=== PATIENT | female | born 2000 | race Caucasian/White ===

== ENCOUNTER 2021-09-14 10:16 | Emergency (ER) | payer BC, SELFPAY ==
[2021-09-14 10:29] VITALS: BP 139/68; PULSE 94; RESP 16; TEMP 36.9; O2SAT 99
--- NOTE | 2021-09-14 11:06 | ED.GENADULT ---
HPI - General Adult General Chief complaint: Urogenital-Female Stated complaint: Tampon unable to get removed Time Seen by Provider: 09/14/21 10:52 Source: patient and RN notes reviewed Mode of arrival: ambulatory Limitations: no limitations History of Present Illness HPI narrative: Patient presents today complaining of a retained tampon. She put one in last night thinking she was going to start her around 1800. She forgot about it then had intercourse. States she is 100% competent that it is still in her vagina. complaint: Retained tampon Related Data Home Medications Medication Instructions Recorded Confirmed etonogestrel [Nexplanon] See Rx Instructions .ROUTE .COMPLEX 09/14/21 09/14/21 Allergies Allergy/AdvReac Type Severity Reaction Status Date / Time No Known Allergies Allergy Verified 09/14/21 10:40 Review of Systems Review of Systems: CONSTITUTIONAL: Denies body aches, fever, chills, or sweats. EYES: Denies visual changes, redness, or discharge. ENT: Denies rhinorrhea, congestion, sore throat, or otalgia. CARDIOVASCULAR: Denies chest pain, palpitations, or edema. RESPIRATORY: Denies cough or dyspnea. GASTROINTESTINAL: Denies abdominal pain, nausea, vomiting, or diarrhea. GENITOURINARY: Denies dysuria or hematuria. + Retained tampon SKIN: Denies rash, itching, or wounds. MUSCULOSKELETAL: Denies back pain, joint pain, or myalgia. NEUROLOGIC: Denies headache, numbness, tingling, or weakness. PSYCH: Denies depression or anxiety. PMFSH Comments At time of signature, I have reviewed and agree with nursing past medical, surgical, social and family history unless otherwise noted. Please see nursing chart for further information. There is no relevant family history pertinent to the presenting complaint Exam Narrative: GENERAL: Well-appearing, well-nourished, and in no acute distress. HEAD: Normocephalic, atraumatic. EYES: EOMI. No redness or drainage. Conjunctivae normal. ENT: Mucous membranes pink and moist. NECK: Normal AROM. CHEST: No respiratory distress. : Retained tampon noted in vagina. Removed with sponge foreceps. EXTREMITIES: Normal range of motion. No edema. SKIN: Warm, dry, no rash. Capillary refill normal. Normal skin turgor. NEURO: No focal deficits. Alert and oriented x3. Gait steady. PSYCH: Normal affect. No signs of depression or anxiety. Course Vital Signs Vital signs: Vital Signs Temperature 98.4 F 09/14/21 10:29 Pulse Rate 94 09/14/21 10:29 Respiratory Rate 16 09/14/21 10:29 Blood Pressure 139/68 09/14/21 10:29 Pulse Oximetry 99 09/14/21 10:29 Temperature 98.4 F 09/14/21 10:29 Pulse Rate 94 09/14/21 10:29 Respiratory Rate 16 09/14/21 10:29 Blood Pressure 139/68 09/14/21 10:29 Pulse Oximetry 99 09/14/21 10:29 Reviewed. Pt has been instructed to follow up with her PCP regarding her elevated blood pressure today. Procedures Foreign Body Removal Foreign Body #1: Foreign Body Removal Date: 09/14/21 Foreign Body Removal Time: 11:07 Time Out Performed: no Site: vagina Description of foreign body: other (tampon) Sedation/Analgesia: none Technique: removal with forceps Confirmed by:: direct visualization Complications: none Post-procedure exam: awake, alert Foreign Body Removal Narrative: Intact tampon removed from vagina. Medical Decision Making Differential Diagnosis Differential Diagnosis: Retained tampon, worried well Vital Signs Vital Signs: Vital Signs Temperature 98.4 F 09/14/21 10:29 Pulse Rate 94 09/14/21 10:29 Respiratory Rate 16 09/14/21 10:29 Blood Pressure 139/68 09/14/21 10:29 Pulse Oximetry 99 09/14/21 10:29 Temperature 98.4 F 09/14/21 10:29 Pulse Rate 94 09/14/21 10:29 Respiratory Rate 16 09/14/21 10:29 Blood Pressure 139/68 09/14/21 10:29 Pulse Oximetry 99 09/14/21 10:29 Critical Care Time Critical
== END 2021-09-14 11:15 | disposition home or self-care (01) ==
PROVIDERS: Emergency Provider Nurse Practitioner
DX: T19.2XXA Foreign body in vulva and vagina, initial encounter (principal); X58.XXXA Exposure to other specified factors, initial encounter
CPT/HCPCS: 99212; G0463

== ENCOUNTER 2021-11-05 09:23 | Emergency (ER) | payer BC, SELFPAY ==
[2021-11-05 09:29] VITALS: BP 131/71; PULSE 82; RESP 16; TEMP 36.3; O2SAT 99
--- NOTE | 2021-11-05 10:04 | ED.NAVMDI ---
HPI - Nausea/Vomiting/Diarrhea General Chief complaint: Nausea/Vomiting/Diarrhea Stated complaint: vomiting/diaherra/nausea Time Seen by Provider: 11/05/21 10:04 Source: patient and RN notes reviewed Mode of arrival: ambulatory Limitations: no limitations History of Present Illness HPI Narrative: Patient presents today complaint of a 3-day history of nausea and vomiting. She initially ran a fever of 100.7, but this has resolved. Over the last 24 h she has been able to eat some cereal. And soup and been able to drink fluids. She does continue to have some diarrhea. 3 episodes yesterday and 2 today so far. No blood or mucus in the stool. She does continue to have nausea. Her last episode of vomiting was yesterday at 6:30 in the morning. She continues to have normal urine output. MD elicited complaint: nausea, vomiting and diarrhea Related Data Home Medications Medication Instructions Recorded Confirmed etonogestrel [Nexplanon] See Rx Instructions .ROUTE .COMPLEX 09/14/21 09/14/21 Allergies Allergy/AdvReac Type Severity Reaction Status Date / Time No Known Allergies Allergy Verified 09/14/21 10:40 Review of Systems Review of Systems: CONSTITUTIONAL: Denies chills, or sweats.+ Fever, body aches EYES: Denies visual changes, redness, or discharge. ENT: Denies rhinorrhea, congestion, sore throat, or otalgia. CARDIOVASCULAR: Denies chest pain, palpitations, or edema. RESPIRATORY: Denies cough or dyspnea. GASTROINTESTINAL: Denies abdominal pain. + Nausea, vomiting, diarrhea GENITOURINARY: Denies dysuria or hematuria. SKIN: Denies rash, itching, or wounds. MUSCULOSKELETAL: Denies back pain, joint pain, or myalgia. NEUROLOGIC: Denies headache, numbness, tingling, or weakness. PSYCH: Denies depression or anxiety. PMFSH Comments At time of signature, I have reviewed and agree with nursing past medical, surgical, social and family history unless otherwise noted. Please see nursing chart for further information. There is no relevant family history pertinent to the presenting complaint Exam Narrative: GENERAL: Well-appearing, well-nourished, and in no acute distress. HEAD: Normocephalic, atraumatic. EYES: EOMI. No redness or drainage. Conjunctivae normal. ENT: Mucous membranes pink and moist. Throat normal. Uvula midline. NECK: Normal AROM. Supple. No lymphadenopathy. CHEST: No respiratory distress. Clear to auscultation. HEART: Regular rate and rhythm. No murmur appreciated. Normal peripheral pulses. ABDOMEN: Soft, nontender, nondistended, normal active bowel sounds. MUSCULOSKELETAL: No bony tenderness. EXTREMITIES: Normal range of motion. No edema. SKIN: Warm, dry, no rash. Capillary refill normal. Normal skin turgor. NEURO: No focal deficits. Alert and oriented x3. Gait steady. PSYCH: Normal affect. No signs of depression or anxiety. Course Vital Signs Vital signs: Vital Signs Temperature 97.3 F L 11/05/21 09:29 Pulse Rate 82 11/05/21 09:29 Respiratory Rate 16 11/05/21 09:29 Blood Pressure 131/71 11/05/21 09:29 Pulse Oximetry 99 11/05/21 09:29 Temperature 97.3 F L 11/05/21 09:29 Pulse Rate 82 11/05/21 09:29 Respiratory Rate 16 11/05/21 09:29 Blood Pressure 131/71 11/05/21 09:29 Pulse Oximetry 99 11/05/21 09:29 Reviewed. Pt has been instructed to follow up with her PCP regarding her elevated blood pressure today. MDM - Nausea/Vomiting/Diarrhea Differential Diagnosis Differential diagnosis: Likely food poisoning, gastroenteritis and dehydration Critical Care Time Critical Care Time Critical Care Time: No Discharge Plan Discharge Clinical Impression: Gastroenteritis Patient Disposition: Home, Self-Care Condition: Stable Instructions: Gastroenteritis (DC) Additional Instructions: Take the Zofran as prescribed for nausea and vomiting. Your symptoms should continue to improve over the next couple of days. Take Tylenol for fever or pain. Continue
== END 2021-11-05 10:21 | disposition home or self-care (01) ==
PROVIDERS: Emergency Provider Nurse Practitioner
DX: K52.9 Noninfective gastroenteritis and colitis, unspecified (principal)
CPT/HCPCS: 99213; G0463

== ENCOUNTER 2022-02-16 16:06 | Emergency (ER) | payer BC, SELFPAY ==
[2022-02-16 16:17] VITALS: BP 110/75; PULSE 93; RESP 18; TEMP 36.6; O2SAT 100
--- NOTE | 2022-02-16 16:18 | ED.SKABFB ---
HPI - Skin/Abscess/Foreign Bdy General Chief complaint: Skin/Abscess/Foreign Body Stated complaint: Infection in hands Time Seen by Provider: 02/16/22 16:18 Source: patient Mode of arrival: ambulatory Limitations: no limitations History of Present Illness HPI narrative: 22-year-old female presents with cat bites and scratches to both hands. Took her friend's cat in yesterday but gave her back after multiple bites. Reports that cat is up-to-date on vaccines. Patient reports that she is up-to-date on her tetanus. States that left index finger began looking red and swollen last night. No active bleeding. Range of motion intact. All systems reviewed and negative symptoms noted above. Related Data Home Medications Medication Instructions Recorded Confirmed etonogestrel [Nexplanon] See Rx Instructions .ROUTE .COMPLEX 09/14/21 02/16/22 Allergies Allergy/AdvReac Type Severity Reaction Status Date / Time No Known Allergies Allergy Verified 02/16/22 16:08 Review of Systems Review of Systems: CONSTITUTIONAL: Denies fever, chills, or sweats. EYES: Denies visual changes, redness, or discharge. ENT: Denies rhinorrhea, congestion, sore throat, or otalgia. CARDIOVASCULAR: Denies chest pain, palpitations, or edema. RESPIRATORY: Denies cough or dyspnea. GASTROINTESTINAL: Denies abdominal pain, nausea, vomiting, or diarrhea. GENITOURINARY: Denies dysuria or hematuria. SKIN: Denies rash or itching. Reports cat bites and scratches to both hands. MUSCULOSKELETAL: Denies back pain, joint pain, or myalgia. NEUROLOGIC: Denies headache, numbness, or weakness. PSYCHIATRIC: Denies anxiety or depression. All other systems reviewed are negative, except as documented in HPI. PMFSH Comments At time of signature, agree with nursing past medical, surgical, social and family history. There is no relevant family history pertinent to the presenting complaint. Exam Narrative: GENERAL: This is a well-nourished, well-developed patient, in no apparent distress. HEAD: normocephalic, atraumatic. EYES: PERRL. Sclera clear/white. Vision is grossly intact. EARS: External ears normal NOSE: External nose normal NECK: Neck supple, non-tender without lymphadenopathy, masses or thyromegaly. CARDIOVASCULAR: Regular rate and rhythm without murmurs, gallops, or rubs. RESPIRATORY: Clear to auscultation. Breath sounds equal bilaterally. No wheezes, rales, or rhonchi. SKIN: warm, Dry, with no suspicious lesions or rash, good texture and turgor. Multiple superficial scratches and puncture wounds to both hands. There is erythema and swelling to right index finger, thenar aspect of left palm. Warm to touch. No fluctuance concerning for abscess. No drainage. NEURO: awake, alert, and oriented to person, place and time. There were no obvious focal neurologic abnormalities. EXTREMITIES: Normal range of motion to all extremities. Course Course Level of Care: Express Care Visit Vital Signs Vital signs: Reviewed MDM - Skin/Abscess/Foreign Bdy MDM Narrative Medical decision making narrative: Patient is aware of diagnosis, understands and agrees to treatment plan. Anticipatory guidance given. Patient agrees to follow-up as directed and is aware of reasons to seek care at the emergency department. Portions of this record may have been created with voice recognition software Discharge Plan Discharge Clinical Impression: Cat bite of left hand including fingers with infection Qualifiers: Encounter type: initial encounter Qualified Code(s): S61.452A - Open bite of left hand, initial encounter Cat bite of multiple sites of right hand and fingers with infection Qualifiers: Encounter type: initial encounter Qualified Code(s): S61.451A - Open bite of right hand, initial encounter Patient Disposition: Home, Self-Care Condition: Stable Instructions: Antibiotic Form, Animal Bite (ED) Prescriptions: New amoxicillin-pot clavulanate 875-125 mg tablet
[2022-02-16] MEDS: cefTRIAXone 1 GM VIAL IM (16:34)
[2022-02-16] MEDS: LIDOCAINE HCL 1% LOCAL INJ 20 ML VIAL 2.5 ML INFILTRATE (16:36)
== END 2022-02-16 16:58 | disposition home or self-care (01) ==
PROVIDERS: Emergency Provider Nurse Practitioner Family; PCP Student in an Organized Health Care Education/Training Program
DX: S61.452A Open bite of left hand, initial encounter (principal); S61.451A Open bite of right hand, initial encounter; S61.259A Open bite of unspecified finger without damage to nail, initial encounter; L08.9 Local infection of the skin and subcutaneous tissue, unspecified; W55.01XA Bitten by cat, initial encounter
CPT/HCPCS: 96372; 99213; G0463; J0696

== ENCOUNTER 2022-02-19 14:52 | Emergency (ER) | payer BC, SELFPAY ==
[2022-02-19 14:59] VITALS: BP 108/75; PULSE 92; RESP 18; TEMP 36.6; O2SAT 100
--- NOTE | 2022-02-19 15:07 | ED.FEMALEGU ---
HPI - Female Genitourinary General Chief complaint: Urogenital-Female Stated complaint: Std Testing Time Seen by Provider: 02/19/22 15:07 Source: patient, RN notes reviewed and old records reviewed Mode of arrival: ambulatory Limitations: no limitations History of Present Illness HPI Narrative: 22-year-old female presents for an STD check and concern for vaginal itching 2 days ago. No symptoms today. Had unprotected sex approximately 1 month ago. Also had unprotected sex last night Denies any abdominal pain or chest pain. No fevers. Denies any vaginal discharge or itching or irritation currently Related Data Home Medications Medication Instructions Recorded Confirmed etonogestrel [Nexplanon] See Rx Instructions .ROUTE .COMPLEX 09/14/21 02/19/22 Allergies Allergy/AdvReac Type Severity Reaction Status Date / Time No Known Allergies Allergy Verified 02/16/22 16:08 Review of Systems Review of Systems: All systems reviewed & are unremarkable except as noted in HPI and below Constitutional: Constitutional: Reports no additional constitutional complaints, Denies chills and Denies fatigue Eyes: Eyes: Reports no additional eye complaints ENT: Reports system reviewed and no additional complaints, except as documented Cardiovascular: Cardiovascular: Reports no additional cardiovascular complaints Respiratory: Respiratory: Reports no additional respiratory complaints Gastrointestinal: Gastrointestinal: Reports no additional gastrointestinal complaints, Denies abdominal pain, Denies diarrhea, Denies nausea and Denies vomiting Genitourinary: Genitourinary: Reports as per HPI, Denies nocturia, Denies genital lesions, Denies dysuria, Denies pelvic pain, Denies flank pain, Denies urinary incontinence, Denies vaginal discharge and Reports vaginal pruritus (2 days ago) Musculoskeletal: Musculoskeletal: Reports no additional musculoskeletal complaints and Denies back pain Integumentary/Breasts: Skin/Breast: Reports system reviewed and no additional complaints, except as docu Neurologic: Reports system reviewed and no additional complaints, except as documented Psychiatric: Psychiatric: Reports no additional psychiatric complaints Allergic/Immunologic: Allergic/Immunologic: Reports no additional allergic/immunologic complaints PMFSH Comments At the time of my signature, I reviewed and agree with the nursing past medical, surgical, social, and family history. There is no relevant family history pertinent to the patient complaint. Exam Const: General: healthy appearing, no acute distress and alert Nutritional Appearance: well nourished Orientation/consciousness: patient oriented x3 Limitations: no limitations HENMT: Head: normal to inspection Ears: external ears normal Eyes: Conjunctivae: conjunctivae normal Pupils: Equal, round and reactive pupils present Neck: Neck: normal visual inspection, no lymphadenopathy and no meningeal signs Chest: Chest palpation & inspection: normal inspection of the chest and abnormal inspection of the chest Resp: Effort & Inspection: normal respiratory effort Auscultation: clear to auscultation bilaterally Cardio: Rate: regular rate Rhythm: regular rhythm GI: GI Palp: Yes Soft to palpation and No Tenderness to palpation present (GI) : General: Yes no CVA tenderness Speculum Exam - Vagina: normal vaginal discharge, No vaginal bleeding, no swelling and nontender Speculum Exam - Cervix: normal appearance of the cervix, Cervical os closed, normal vervical discharge and nontender Other: Chaperoned by Beena RAMIREZ Back/Spine/Pelvis: Back: no CVA tenderness Skin: General skin exam: normal color Rashes: no rashes Wounds: no wounds Neuro: General: patient oriented x3, moves all extremities, no meningeal signs and no focal motor deficits Cranial nerves: Yes Equal, round and reactive pupils present Speech: normal speech Gait exam (Neuro): Normal gait present Extrem: General: normal to in
== END 2022-02-19 15:40 | disposition home or self-care (01) ==
PROVIDERS: Emergency Provider Nurse Practitioner; PCP Student in an Organized Health Care Education/Training Program
DX: N89.8 Other specified noninflammatory disorders of vagina (principal); Z20.2 Contact with and (suspected) exposure to infections with a predominantly sexual mode of transmission; Z32.02 Encounter for pregnancy test, result negative
CPT/HCPCS: 81025; 87070; 87491; 87591; 87661; 99214; G0463

== ENCOUNTER 2024-01-03 17:23 | Outpatient (CLI) | payer BC, SELFPAY | END 2024-01-03 17:24 | disposition home or self-care (01) | LOC: ANHLAB 17:24 | PROVIDERS: PCP Student in an Organized Health Care Education/Training Program; Visit Provider Obstetrics & Gynecology | DX: Z01.818 Encounter for other preprocedural examination (principal); R10.2 Pelvic and perineal pain | CPT/HCPCS: 36415; 86850; 86900; 86901 ==

== ENCOUNTER 2024-01-07 01:26 | Day surgery (SDC) | payer BC, SELFPAY ==
[2024-01-01 15:52] VITALS: BMI 28.8
--- NOTE | 2024-01-01 16:01 | PC.NURSE ---
Report to the Outpatient Waiting Room, entrance under the green pavilion located off [facility] at 1130 on 01/07/24 . Planned Procedure Time: 1330. Time changes happen often and if your time is changed the preop area will call you the afternoon before. - You and your visitor will be asked to self-screen and do not enter if you have any COVID symptoms. - A mask is optional within the hospital at this time. Patients may have clear liquids (water, carbonated beverages, clear teas, apple juice) until 3 hours prior to surgery with a maximum of 20 ounces. - No food from midnight until time of surgery Take the following medications with a SIP of water the morning of surgery: N/A DO NOT STOP ANY OF YOUR OTHER PRESCRIPTION MEDICATIONS PRIOR TO SURGERY ?EXCEPT THE FOLLOWING Medications to discontinue per physician N/A Date to take last dose N/A Please no make-up, nail bulgarian, hairspray, perfume, deodorant, or body powder the day of surgery. No jewelry (including any body piercings) or valuables the day of surgery, leave them at home. Please take a shower or bath the night before, or the morning of, surgery with an antibacterial soap. Wear comfortable, loose fitting clothing. - Jewelry must be removed prior to entering the operating room. Rings and piercings that are not removed may be cut off. - The hospital will not accept responsibility for valuables. - Please leave all valuables, including medications, at home the day of surgery. If you are going home after surgery, a licensed fast food delivery driver must drive you home. - NO public transportation without another adult if you receive anesthesia. - We recommend that an adult stay with you for 24 hours following discharge. - We also recommend that you do not drive, make important decision, drink alcoholic beverages, or take any drugs that were not prescribed by your health care provider for at least 24 hours after your discharge time. Follow any additional instructions given to you from your surgeon. If you or anyone in your household have experienced Covid symptoms in the past week, please notify your surgeon or the nurse liaison at the phone number below for possible testing. Telephone instructions given to patient and asked if any additional questions and then verbalized understanding. Patient advised to call surgeon office or pre surgery nurse liaison [phone] if any additional questions.
--- NOTE | 2024-01-05 07:57 | PM.IMHP ---
H&P: HPI History of Present Illness Date/Time: 01/05/24 07:57 Chief Complaint: Pelvic pain and bleeding Narrative: 23-year-old female 0 admitted for laparoscopy secondary to pelvic pain and discomfort. She has had premenstrual menstrual discomfort. She is having pain with intercourse she had the same partner with negative STD testing. She would like to have a baby. Imaging was negative with negative STD testing. Risks and benefits reviewed in full [facility] Social History Social History Smoking packs per day: 0.5 Smoking cigarettes per day: 10.0 Years smoked: 3 Smoking pack-years: 1.50 Smoking status: Current every day smoker Tobacco type: cigarettes Second hand tobacco smoke exposure: Yes Alcohol intake: current Drinks per week: 3 Substance use: never Living arrangements: alone Spiritual care concerns: No Meds Home Medications and Allergies Home Medications Medication Instructions Recorded Confirmed Type No Home Medications 01/01/24 01/01/24 History Allergies Allergy/AdvReac Type Severity Reaction Status Date / Time No Known Allergies Allergy Verified 01/01/24 15:51 Exam Const: General: cooperative, healthy appearing and comfortable Nutritional Appearance: average body habitus Orientation/consciousness: oriented to person, oriented to place and oriented to time HENMT: Head: normal to inspection Resp: Effort & Inspection: normal respiratory effort Cardio: Rate: regular rate Rhythm: regular rhythm Heart sounds: S1 normal heart sound present and S2 normal heart sound present GI: Inspection: normal to inspection : External Female Exam: normal external appearance Speculum Exam - Vagina: normal appearance of the vagina Speculum Exam - Cervix: normal appearance of the cervix Bimanual exam- vagina & uterus: cervical motion tenderness and Uterine tenderness Bimanual Exam- Adnexa, other: tender bilaterally Assessment and Plan Assessment and plan (1) Pelvic pain: Code(s): R10.2 - Pelvic and perineal pain Status: Acute Plan Diagnostic laparoscopy
[2024-01-07] VITALS (7 sets, daily range): BP systolic 113–128; BP diastolic 74–83; PULSE 65–102; RESP 16–24; TEMP 36.2–37; O2SAT 99–100; BMI 29.8
--- NOTE | 2024-01-07 05:46 | WPDHPUPDATE1 ---
History and Physical Update Update Date/Time: 01/07/24 05:46 History and Physical has been reviewed, including an updated exam of the patient. There are NO changes in the patient's condition. Risks, benefits, and alternatives have been discussed and questions answered. Patient agrees to proceed with procedure.
[2024-01-07] MEDS: LACTATED RINGERS 1,000 ML 30 ML IV CONT (12:00)
[2024-01-07] MEDS: KETOROLAC 15 MG/ML VIAL (*BKC) IV PUSH (12:11)
[2024-01-07] MEDS: ACETAMINOPHEN 500 MG TABLET 1000 MG PO (12:11)
--- NOTE | 2024-01-07 12:28 | WPDANESEPPF ---
Anes - Initial Pre Proc Eval Procedure: Operation Date: 01/07/24 13:30 Proposed Procedures p Diagnostic Laparoscopy - Palmer Gibson MD Date/Time: 01/07/24 12:28 Surgeon: Palmer Gibson MD Pre Op Diagnosis: Pelvic Pain, Heavy Bleeding Patient Data Age: 24 Gender: F Height: 1.73 m Weight: 88.95 kg Last Vital Signs Temp 37.0 C 01/07/24 11:30 Pulse 70 01/07/24 11:30 Resp 16 01/07/24 11:30 BP 113/77 01/07/24 11:30 Pulse Ox 100 01/07/24 11:30 O2 Del Method Room Air 01/07/24 11:30 Allergies Allergy/AdvReac Type Severity Reaction Status Date / Time No Known Allergies Allergy Verified 01/07/24 11:48 Home Medications Medication Instructions Recorded Confirmed Type hydrocodone 5 mg-acetaminophen 325 1 tablet PO Q4H PRN pain #20 tabs 01/07/24 Rx mg tablet Patient hx anesthesia problems: none Family hx anesthesia problems: none Results Review: All pre-operative results and documents have been reviewed as part of the pre-operative evaluation. [facility] Social History Social History Smoking packs per day: 0.5 Smoking cigarettes per day: 10.0 Years smoked: 3 Smoking pack-years: 1.50 Smoking status: Current every day smoker Tobacco type: cigarettes Second hand tobacco smoke exposure: Yes Alcohol intake: current Drinks per week: 3 Substance use: never Living arrangements: alone Spiritual care concerns: No Anes - Eval Final PreProcedure Day of Procedure 01/07/24 12:28 Patient weight: overweight Heart: regular rate and rhythm Lungs: clear to auscultation Airway: Mallampati scale class II Neurological: alert and oriented Last oral intake: >/= 8 hours ASA classification: II Emergent: no Anesthetic plan: proceed Anesthesia type and monitoring: general ETT and standard monitoring Results Review: All pre-operative results and documents have been reviewed as part of the pre-operative evaluation. Informed Consent: The patient's anesthetic plan and its attendant risks and benefits were discussed with the patient/family/POA. Questions were solicited and answers provided to the satisfaction of the patient/family/POA.
[2024-01-07] MEDS: SCOPOLAMINE 1 MG PATCH 1 PATCH TRANSDERM (12:30)
[2024-01-07] MEDS: METHYLENE BLUE 0.5% INJ 10 ML AMPULE 20 ML IRRIGATION (13:19)
--- NOTE | 2024-01-07 13:23 | P.OP_ITS ---
Procedure Note - Detailed Date of Procedure 01/07/24 Pre-op Diagnosis Pelvic Pain, Heavy Bleeding Post-op Diagnosis Other (Pelvic pain /endometriosis) Procedure Performed laparoscopic destruction of endometriosis Surgeon Palmer Gibson MD Anesthesia General Indications this is a 24-year-old female with pelvic pain Findings endometriosis along the right uterosacral ligament. A 10cc of serosanguineous fluid the cul-de-sac. Normal-appearing ovaries tubes uterus appendix and gallbladder and liver edge Description of Procedure patient was prepped draped in the normal sterile fashion placed in dorsal li thotomy position. Under excellent general trach anesthesia weighted speculum placed in posterior fornix. Anterior lip of the cervix with single-tooth. Uterus cannula was inserted and attached to the single-tooth to be used later for uterine manipulation. Bladder was emptied of clear urine the weighted speculum was removed. Gloves were changed. A supraumbilical incision Veress needle passed. With CO2 gas to 15 trek 5mm trocar advanced in the abdomen. Downside visualized no injury seen. Patient placed in Trendelenburg and a suprapubic incision made. The 5 trocar advanced under visualization assuring no injury P the above findings were seen. Using monopolar cautery the area of endometriosis was cauterized at 35 w per 2nd. The ovaries and tubes appeared within normal limits. The cul-de-sac was irrigated suction. The remainder the pelvis appeared within normal limits and photo documentation undertaken. The acromial 2/2 patient was undertaken with methylene blue. This was pressed through the uterine cervix and emptied through each fallopian tube. Irrigation undertaken until clear the lower site removed. The gas removed from the abdomen. The upper site removed. The incisions closed with 4 Monocryl and glue. Patient was awakened and went to recovery in satisfactory condition. All sponge, needle, instrument counts were correct. There were no immediate complications Estimated Blood Loss 5 Drains No Packing No Pathology None sent Complications No immediate complications Condition Stable Disposition PACU
[2024-01-07] MEDS: oxyCODONE HCL (*CRX) 5 MG TAB IR PO (14:34)
== END 2024-01-07 15:25 | disposition home or self-care (01) ==
PROVIDERS: PCP Student in an Organized Health Care Education/Training Program; Visit Provider Obstetrics & Gynecology
PROC: (CPT 49320; principal; 2024-01-07 13:30)
DX: N80.3C1 Endometriosis of the right uterosacral ligament, unspecified depth (principal); F17.210 Nicotine dependence, cigarettes, uncomplicated; Z79.891 Long term (current) use of opiate analgesic
CPT/HCPCS: 58662; A9270; J0330; J1100; J1885; J2250; J2405; J2704; J7030; J7120; Q9968